=== PATIENT | female | born 1990 | race African-American/Black ===

== ENCOUNTER 2023-10-27 12:12 | Emergency (ER) | payer OTHER ==
[~2023-10-27] VITALS: Ht 154.9 cm; Wt 63.5 kg
[2023-10-27 12:17] VITALS: BP 112/63; TEMP 98.9
[2023-10-27 12:53] LABS: APPEARANCE,URINE Slightly Cloudy (CLEAR); BILIRUBIN,URINE LARGE (NEGATIVE); BLOOD, URINE Moderate Ery/uL (NEGATIVE); COLOR,URINE ORANGE (YELLOW); KETONES,URINE 40 mg/dL (NEGATIVE); LEUKOCYTE ESTERASE ,URINE Large (NEGATIVE); NITRITE, URINE Positive (NEGATIVE); PROTEIN,URINE >=300 mg/dl (NEGATIVE); UGLUCOSE 500 MG/DL mg/dL (NEGATIVE)
[2023-10-27 12:58] LABS: PREGNANCY TEST URINE QUAL NEGATIVE (NEGATIVE)
[2023-10-27 13:08] LABS: ADD URINE CULTURE YES; BACTERIA,URINE Few /HPF (None Seen); SQUAMOUS EPITHELIAL CELL,UR Few /HPF (None Seen)
[2023-10-27 13:09] LABS: URINE AMORPHOUS URATE Moderate /HPF (None Seen)
[2023-10-27] MEDS ORDERED: CEPH500T PO (13:37)
== END 2023-10-27 13:43 | disposition home or self-care (01) ==
LOC: ER 12:44
DX: N39.0 Urinary tract infection, site not specified (principal); J03.80 Acute tonsillitis due to other specified organisms; B96.89 Other specified bacterial agents as the cause of diseases classified elsewhere; Z60.2 Problems related to living alone
CPT/HCPCS: 81001; 84703-TC; 86403-TC; 87086-TC

== ENCOUNTER 2024-03-06 12:33 | Emergency (ER) | payer OTHER ==
[~2024-03-06] VITALS: Ht 154.9 cm; Wt 65.3 kg
[~2024-03-06 12:33] MED LIST: CEPH500T PO
[2024-03-06 12:50] VITALS: BP 118/71; TEMP 98.2
[2024-03-06 13:29] LABS: APPEARANCE,URINE CLEAR (CLEAR); BILIRUBIN,URINE 1+ (NEGATIVE); BLOOD, URINE NEGATIVE Ery/uL (NEGATIVE); COLOR,URINE YELLOW (YELLOW); KETONES,URINE NEGATIVE (NEGATIVE); LEUKOCYTE ESTERASE ,URINE NEGATIVE (NEGATIVE); NITRITE, URINE NEGATIVE (NEGATIVE); PROTEIN,URINE NEGATIVE (NEGATIVE); UGLUCOSE NEGATIVE (NEGATIVE); UROBILINOGEN,URINE 0.2 EU/dL (0.2)
[2024-03-06 13:30] LABS: ADD URINE CULTURE NO; BACTERIA,URINE Rare /HPF (None Seen); PREGNANCY TEST URINE QUAL NEGATIVE (NEGATIVE); RBC,URINE 0-2 /HPF (0-2); SQUAMOUS EPITHELIAL CELL,UR Moderate /HPF (None Seen); WBC,URINE 0-2 /HPF (0-3)
[2024-03-06] MEDS ORDERED: CEPH-570 PO (13:41)
[2024-03-06 13:47] VITALS: O2SAT 98
== END 2024-03-06 13:48 | disposition home or self-care (01) ==
LOC: ER 12:33
DX: N39.0 Urinary tract infection, site not specified (principal)
CPT/HCPCS: 81001; 84703-TC